=== PATIENT | male | born 1965 | race Caucasian/White ===

== ENCOUNTER 2018-01-18 04:25 | Inpatient (IN) | payer BC, SELFPAY ==
[2018-01-18] VITALS (24 sets, daily range): BP systolic 99–148; BP diastolic 54–87; PULSE 88–116; RESP 10–32; TEMP 36.6–37.7; O2SAT 94–100; BMI 24.7; BMI 24.5; BMI 24.6
--- NOTE | 2018-01-18 04:36 | EKG12_ITS ---
Test Reason : Blood Pressure : / mmHG Vent. Rate : 092 BPM Atrial Rate : 092 BPM P-R Int : 170 ms QRS Dur : 104 ms QT Int : 366 ms P-R-T Axes : 055 -30 066 degrees QTc Int : 452 ms Normal sinus rhythm Left axis deviation Abnormal ECG Confirmed by TELMA MAO, MAURICE ([id number]), science editor BLADE MONDRAGON ([id number] on 01/21/2018 2:44:40 PM Referred By: Confirmed By:MAURICE HOLLIS MD
--- NOTE | 2018-01-18 04:36 | CT_ITS ---
STUDY: CT ABDOMEN AND PELVIS WITHOUT CONTRAST REASON FOR EXAM: Male, 52 years old. Nausea and vomiting. Bloody stools. Patient had a colonoscopy prior day. RADIATION DOSAGE (If Supplied By Facility): CTDIvol = ( 9.06 ) mGy, DLP = ( 407.33 ) mGycm TECHNIQUE: Transaxial images were obtained from the dome of the diaphragm to the symphysis pubis without oral contrast, and without intravenous contrast. Sagittal and coronal images were reconstructed. Individualized dose optimization techniques were used for this CT. COMPARISON: Comparison is made with prior study dated April 17, 2010. FINDINGS: The visualized lung bases are unremarkable. The visualized portions of the heart are within normal limits. Normal liver. I suspect small gallstones along the dependent portion of the gallbladder. Normal spleen. Normal pancreas. Normal bilateral adrenal glands. Normal right kidney. Normal left kidney. There is a small hiatal hernia. Normal small intestine. There are multiple colonic diverticula consistent with diverticulosis. The appendix is visualized and appears normal. There is diffuse atherosclerotic calcification of the abdominal aorta, without a demonstrated aneurysm. Normal inferior vena cava. Normal retroperitoneum. Distended urinary bladder. Small bilateral benign appearing inguinal lymph nodes. Mild degree of central prostatic calcifications. Normal abdominal wall. 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 CT/Abdomen/Pelvis without Cont IMPRESSION: I suspect small gallstones in the dependent portion of gallbladder. Sigmoid diverticulosis. Distended urinary bladder. Electronically Signed: Malcolm Kapoor MD at 8:49 EST Tel [phone], Service support ,
--- NOTE | 2018-01-18 04:39 | ED.VISSUMM ---
- ER Visit Summary Date of Service: 01/18/18 Chief Complaint: [Vomiting] History of Present Illness: The patient is a 52 M [presents the emergency department with nausea vomiting and intermittent crampy abdominal pain. Been going on since yesterday afternoon. He did have a colonoscopy performed at [facility] by Dr. Panda. After the procedure he started vomiting he is vomited 6-7 times. He did have some bright red blood per rectum. He feels generally weak. No fevers or chills. He is a type I diabetic and thinks this may be ketoacidosis. He also drinks 3-4 beers daily and does smoke. He feels generally weak. He has not had any abdominal surgeries.] Physical Examination: [] Blood pressure 143/81 heart rate 101 respiratory rate 15 pulse ox 100% on room air WN WD NAD PERRL EOMI Dry mucous membranes NECK supple and nontender, no masses Your tachycardic rhythm no murmur rub or gallop, no peripheral edema, symmetric radial pulses CTAB no respiratory distress ABDOMEN is soft mild epigastric and suprapubic tenderness to palpation, normal bowel sounds, no distension, no rebound or guarding SKIN is warm and dry no rashes Alert and Oriented x3, CN II-XII in tact, no motor or sensory deficits, gait normal No lymphadenopathy Test Results: [] Emergency Department Course and Treatment: [EKG is sinus at 92 there is no acute ischemic changes he does have left axis deviation. Screening labs are consistent with DKA. Patient is very dehydrated and there was great difficulty obtaining IV. I did attempt IV sites in both EEGs without success. He was consented for central line see procedure note below. He was given fluids Reglan and insulin drip. Because of his recent procedure CT of the abdomen was obtained to rule out free air. I did speak with Dr. Panda as well as Dr. Stanton.] PROCEDURE NOTE: Risk and benefit of central line were discussed with both the patient and his . They did consent. Skin was prepped and draped with sterile fashion. Ultrasound was used to locate the right common femoral vein. Patient was anesthetized with lidocaine locally femoral vein was cannulated after 2 punctures. There were no complications during the procedure. He had good flash and all 3 ports and the easily flushed. Line was sutured in. Sterile dressing was placed Treatment Plan: [] Disposition: [Admit] Impression: 1. DKA 2. Dehydration severe [] This note was generated with [employer] dictation software. It may contain incorrect words, spelling, and punctuation that were not noted in review of the chart prior to signing ED Disposition - Plan for ED Patient: Chief Complaint: Nausea/Vomiting Referrals: Rosario Lau MD [STAFF PHYSICIAN] -
[2018-01-18] MEDS: Ondansetron ODT 4 MG Tablet PO (05:41)
[2018-01-18 06:06] LABS: Absolute Lymphocyte Count 1.12 X10^3/ul (0.83-4.51); Basophil# 0.03 X10^3/uL; Basophil% 0.2 % (0-1); Eosinophil# 0.17 X10^3/uL; Eosinophils% 0.9 % (0-5); Hematocrit 46.4 % (40-54); Hemoglobin 16.3 g/dl (13.0-16.5); Lymphocyte # 1.12 X10^3/ul (4.0); Lymphocyte % 5.8 % (19-41); Mean Corp Hgb Conc 35.1 g/gl (32-36); Mean Corpuscular Hgb 32.3 pg (27.0-32.0); Mean Corpuscular Volume 92.1 fL (80-94); Monocyte# 0.85 X10^3/uL; Monocyte% 4.4 % (0-10); Neutrophil # 16.98 X10^3/uL (2.7-7.7); Neutrophil % 88.4 % (47-70); Platelet Count 702 K/mm3 (150-450); RBC Distribution Width CV 17.7 % (11.6-14.6); RBC Distribution Width SD 51.7 fl (35.1-43.9); Red Blood Count 5.04 M/mm3 (4.6-6.2); White Blood Count 19.2 K/mm3 (4.4-11.0)
[2018-01-18 06:07] LABS: Differential Indicated SCAN CRITERIA MET; POSITIVE COUNT YES; POSITIVE DIFFERENTIAL NO; POSITIVE MORPHOLOGY YES
[2018-01-18 06:20] LABS: Differential Comment SCANNED; Platelet Estimate MOD INC (ADEQ)
[2018-01-18 06:33] LABS: ALB/GLOB Ratio 1.1 RATIO (0.9-2.4); AST(SGOT) 15 U/L (15-37); Alanine Aminotransfer ALT/SGPT 15 U/L (16-61); Albumin, Serum 3.8 g/dL (3.2-5.0); Alkaline Phosphatase 92 U/L (45-117); Anion Gap 21 (5-15); BUN 20 mg/dL (7-18); BUN/Creat Ratio 18.5 RATIO (10-20); Calcium,Total 9.1 mg/dL (8.5-10.1); Chloride 105 mmol/L (98-107); Creatinine, Serum 1.08 mg/dL (0.70-1.30); EST Glomerular Filtration Rate 76 mL/min (>60); Est Glom Filt Rate - Afr Amer 92 mL/min (>60); Estimated Creatinine Clearance 85.22 ml/min; Globulin 3.6 g/dL (2.2-4.2); Glucose 358 mg/dL (74-106); Lipase 76 U/L (73-393); Potassium 4.9 mmol/L (3.5-5.1); Protein, Total 7.4 g/dL (6.4-8.2); Sodium Level 138 mmol/L (136-145)
[2018-01-18 07:16] LABS: Bedside Glucose 316 mg/dL (70-110)
--- NOTE | 2018-01-18 07:18 | NURSING ---
PAGED DR SHARP, HE CALLED BACK PAGED HOSPITALIST
[2018-01-18] MEDS: 0.9% Normal Saline 1,000 ML 1000 ML IV (07:21)
--- NOTE | 2018-01-18 07:21 | NURSING ---
DR BOBBI VELARDE
[2018-01-18] MEDS: Ondansetron 4 MG/2 ML Vial IV ×2 (07:22→17:29)
--- NOTE | 2018-01-18 07:24 | NURSING ---
DR MARTINES IN ER
[2018-01-18 07:36] LABS: Bedside Glucose 456 mg/dL (70-110)
--- NOTE | 2018-01-18 07:37 | PCM.HP.STD ---
Problem List (1) DKA (diabetic ketoacidosis) Status: Acute (2) Diabetes mellitus type 1 Status: Chronic History of Present Illness Date of Admission: 01/18/18 Chief Complaint: Nause vomiting. The patient is a 52 year old M who underwent a colonoscopy on the fifth. Since that time patient has been having intractable nausea and and abdominal pain. Patient was unable to keep anything down and presented to the emergency room. Patient was found to be in diabetic ketoacidosis with a blood glucose of 358, moderate acetones. Patient was profoundly dehydrated and they were unable to get any peripheral IVs, unable to gain access to the external jugular veins. Decided by the emergency room physician particular the patient's intractable nausea and vomiting to proceed with a femoral triple lumen catheter which was placed successfully. Patient has yet to receive fluids and insulin yet. Given the intractable nausea vomiting a recent colonoscopy a CAT scan of his abdomen pelvis has been ordered but not done yet. [] Past Medical History Past Medical History (Chronic Problems): Chronic Problems Diabetes mellitus type 1 (Chronic) Allergies No Known Allergies Allergy (Verified 01/18/18 04:26) Home Medications: Ambulatory Orders Medication Instructions Recorded Insulin Glargine,Hum.rec.anlog 35 - 38 unit SQ DAILY 01/18/18 [Lantus] Insulin Lispro [Humalog] 7 - 12 unit SQ TID 01/18/18 Meloxicam [Mobic] 15 mg PO DAILY 01/18/18 Sertraline HCl [Zoloft] 200 mg PO DAILY 01/18/18 Smoking Status: Heavy Smoker (>10/day) Tobacco Use: Cigarettes Alcohol: Occasional - 1-2 drinks per day Drugs: Marijuana - 1 joint per day - *Family History Maternal History Items: Cancer - Breast cancer, Dementia Paternal History Items: - - in 1973 Review of Systems Constitutional: Reports: Chills. Denies: Fever Eyes: Denies: Blurred vision, Double vision HEENT: Denies: Head Aches, Sinus Congestion, Sinus Drainage Cardiovascular: Denies: Chest Pain, Palpitations Respiratory: Denies: Cough, Shortness of breath at rest, Sputum production Gastrointestinal: Reports: Abdominal Pain, Constipation - Does have intermittent constipation regularly., Diarrhea, Nausea, Vomiting Genitourinary: Reports: - - Polyuria. Denies: Dysuria Musculoskeletal: Denies: Joint Pain, Joint Tenderness Skin: Denies: Rash, Wounds Neurological: Denies: Numbness, Tingling, Focal weakness Psychiatric: Denies: Anxiety, Depression Hematologic/ Lymphatic: Denies: Easy Bruising, Easy Bleeding VTE Information - Inpt Only VTE Present on Admission: No VTE Pharm Prophylaxis ordered?: Yes Patient Problems: Active and Suspected Problems DKA (diabetic ketoacidosis) (Acute) - Physical Exam General: Alert, Cooperative, No apparent distress HEENT: Atraumatic, Normocephalic Oral: No Gingival or Mucosal Lesions/ Ulcerations, Dry Mucosa Neck: No Nodes, Thyroid Normal Size and Texture Lungs: Clear to auscultation, Normal air movement, No rhonchi, No wheeze Cardiovascular: Regular Rhythm, Normal S1, Normal S2, Tachycardic Abdomen: Bowel Sounds Present, Soft, Non Tender, Non-Distended, No Hepato-splenomegaly Extremities: No edema, No Calf Tenderness Skin: No rashes, No breakdown Musculoskeletal: No Tenderness to Palpation of Joints or Extremities, No Muscle Wasting Neurological: Neuro grossly intact, Sensory exam intact to light touch and pain, Coordination normal Psych/Mental Status: Normal Affect, Appropriate Vital Signs Temp Pulse Resp BP Pulse Ox 36.9 C 98 30 H 139/87 H 98 01/18/18 04:27 01/18/18 07:24 01/18/18 07:24 01/18/18 06:48 01/18/18 07:24 Oxygen Delivery Method Room Air Weight: 80.6 kg Body Mass Index (BMI) 24.7 Finger Stick Blood Glucose 316 Laboratory Tests Past 24 Hrs 01/18/18 01/18/18 01/18/18 05:35 05:50 05:50 WBC 19.2 H RBC 5.04 Hgb 16.3 Hct 46.4 MCV 92.1 MCH 32.3 H MCHC 35.1 RDW 17.7 H RDW Differential 51.7 H Plt Count 702 H Immature Gran % (Auto) 0.300 Neut % (Auto) 88.4 H Lymph % (Auto) 5.8 L [place] % (Auto) 4.4 Eos % (Auto) 0.9 Baso % (Auto) 0.2 Absolute Neuts (auto) 17.0 H Absolute Lymphs (auto) 1.12 Total Counted Not Reportable Differential Comment SCANNED Platelet Estimate MOD INC Sodium 138 Potassium 4.9 Chloride 105 Carbon Dioxide 12.0 L Anion Gap 21 H BUN 20 H Creatinine 1.08 Estim Creat Clear Calc 85.22 Est GFR (MDRD) Af Amer 92 Est GFR (MDRD) Non-Af 76 BUN/Creatinine Ratio 18.5 Glucose 358 H Calcium 9.1 Total Bilirubin 0.80 AST 15 ALT 15 L Alkaline Phosphatase 92 Troponin I < 0.02 Total Protein 7.4 Albumin 3.8 Globulin 3.6 Albumin/Globulin Ratio 1.1 Lipase 76 Acetone Level MODERATE H POC Glucose 01/18/18 01/18/18 07:31 04:29 POC Glucose 456 H* 316 H Assessment/Plan Active and Suspected Problems DKA (diabetic ketoacidosis) (Acute) 1. Diabetic ketoacidosis Now that IV has been established patient was started on IV fluids as well as insulin drip. Patient's potassium is 4.9. Patient will be on a diabetic ketoacidosis protocol and will wait for his gap to be closed before turning off insulin drip. This may been precipitated with patient's recent colonoscopy and prep but question of the patient has some underlying gastroparesis as well has not been fully delineated. 2. Diabetes mellitus type 1 Patient's home insulin will obviously be held while he is on insulin drip. Will restart once his gap is closed. With the Levemir. 3. DVT prophylaxis with low molecular weight heparin 4. Intractable nausea and vomiting This is suspect this may be more in line with the DKA but a CAT scan of his abdomen pelvis has been ordered in the emergency room. I will be followed up and if anything surgical then Dr. Panda will be consulted. Code Visit Inpatient E&M: 78893 Init Hosp L3
--- NOTE | 2018-01-18 07:40 | NURSING ---
ICU 2 DKA BOBBI
[2018-01-18] MEDS: Metoclopramide 10 MG/2 ML Vial IV (07:41)
--- NOTE | 2018-01-18 07:45 | HP.PCM_ITS ---
Problem List (1) DKA (diabetic ketoacidosis) Status: Acute (2) Diabetes mellitus type 1 Status: Chronic History of Present Illness Date of Admission: 01/18/18 Chief Complaint: Nause vomiting. The patient is a 52 year old M who underwent a colonoscopy on the fifth. Since that time patient has been having intractable nausea and and abdominal pain. Patient was unable to keep anything down and presented to the emergency room. Patient was found to be in diabetic ketoacidosis with a blood glucose of 358, moderate acetones. Patient was profoundly dehydrated and they were unable to get any peripheral IVs, unable to gain access to the external jugular veins. Decided by the emergency room physician particular the patient's intractable nausea and vomiting to proceed with a femoral triple lumen catheter which was placed successfully. Patient has yet to receive fluids and insulin yet. Given the intractable nausea vomiting a recent colonoscopy a CAT scan of his abdomen pelvis has been ordered but not done yet. [] Past Medical History Past Medical History (Chronic Problems): Chronic Problems Diabetes mellitus type 1 (Chronic) Allergies No Known Allergies Allergy (Verified 01/18/18 04:26) Home Medications: Ambulatory Orders Medication Instructions Recorded Insulin Glargine,Hum.rec.anlog 35 - 38 unit SQ DAILY 01/18/18 [Lantus] Insulin Lispro [Humalog] 7 - 12 unit SQ TID 01/18/18 Meloxicam [Mobic] 15 mg PO DAILY 01/18/18 Sertraline HCl [Zoloft] 200 mg PO DAILY 01/18/18 Smoking Status: Heavy Smoker (>10/day) Tobacco Use: Cigarettes Alcohol: Occasional - 1-2 drinks per day Drugs: Marijuana - 1 joint per day - *Family History Maternal History Items: Cancer - Breast cancer, Dementia Paternal History Items: - - in 1973 Review of Systems Constitutional: Reports: Chills. Denies: Fever Eyes: Denies: Blurred vision, Double vision HEENT: Denies: Head Aches, Sinus Congestion, Sinus Drainage Cardiovascular: Denies: Chest Pain, Palpitations Respiratory: Denies: Cough, Shortness of breath at rest, Sputum production Gastrointestinal: Reports: Abdominal Pain, Constipation - Does have intermittent constipation regularly., Diarrhea, Nausea, Vomiting Genitourinary: Reports: - - Polyuria. Denies: Dysuria Musculoskeletal: Denies: Joint Pain, Joint Tenderness Skin: Denies: Rash, Wounds Neurological: Denies: Numbness, Tingling, Focal weakness Psychiatric: Denies: Anxiety, Depression Hematologic/ Lymphatic: Denies: Easy Bruising, Easy Bleeding VTE Information - Inpt Only VTE Present on Admission: No VTE Pharm Prophylaxis ordered?: Yes Patient Problems: Active and Suspected Problems DKA (diabetic ketoacidosis) (Acute) - Physical Exam General: Alert, Cooperative, No apparent distress HEENT: Atraumatic, Normocephalic Oral: No Gingival or Mucosal Lesions/ Ulcerations, Dry Mucosa Neck: No Nodes, Thyroid Normal Size and Texture Lungs: Clear to auscultation, Normal air movement, No rhonchi, No wheeze Cardiovascular: Regular Rhythm, Normal S1, Normal S2, Tachycardic Abdomen: Bowel Sounds Present, Soft, Non Tender, Non-Distended, No Hepato- splenomegaly Extremities: No edema, No Calf Tenderness Skin: No rashes, No breakdown Musculoskeletal: No Tenderness to Palpation of Joints or Extremities, No Muscle Wasting Neurological: Neuro grossly intact, Sensory exam intact to light touch and pain , Coordination normal Psych/Mental Status: Normal Affect, Appropriate Vital Signs Temp Pulse Resp BP Pulse Ox 36.9 C 98 30 H 139/87 H 98 01/18/18 04:27 01/18/18 07:24 01/18/18 07:24 01/18/18 06:48 01/18/18 07:24 Oxygen Delivery Method Room Air Weight: 80.6 kg Body Mass Index (BMI) 24.7 Finger Stick Blood Glucose 316 Laboratory Tests Past 24 Hrs 01/18/18 01/18/18 01/18/18 05:35 05:50 05:50 WBC 19.2 H RBC 5.04 Hgb 16.3 Hct 46.4 MCV 92.1 MCH 32.3 H MCHC 35.1 RDW 17.7 H RDW Differential 51.7 H Plt Count 702 H Immature Gran % (Auto) 0.300 Neut % (Auto) 88.4 H Lymph % (Auto) 5.8 L [place] % (Auto) 4.4 Eos % (Auto) 0.9 Baso % (Auto) 0.2 Absolute Neuts (auto) 17.0 H Absolute Lymphs (auto) 1.12 Total Counted Not Reportable Differential Comment SCANNED Platelet Estimate MOD INC Sodium 138 Potassium 4.9 Chloride 105 Carbon Dioxide 12.0 L Anion Gap 21 H BUN 20 H Creatinine 1.08 Estim Creat Clear Calc 85.22 Est GFR (MDRD) Af Amer 92 Est GFR (MDRD) Non-Af 76 BUN/Creatinine Ratio 18.5 Glucose 358 H Calcium 9.1 Total Bilirubin 0.80 AST 15 ALT 15 L Alkaline Phosphatase 92 Troponin I < 0.02 Total Protein 7.4 Albumin 3.8 Globulin 3.6 Albumin/Globulin Ratio 1.1 Lipase 76 Acetone Level MODERATE H POC Glucose 01/18/18 01/18/18 07:31 04:29 POC Glucose 456 H* 316 H Assessment/Plan Active and Suspected Problems DKA (diabetic ketoacidosis) (Acute) 1. Diabetic ketoacidosis * Now that IV has been established patient was started on IV fluids as well as insulin drip. Patient's potassium is 4.9. Patient will be on a diabetic ketoacidosis protocol and will wait for his gap to be closed before turning off insulin drip. This may been precipitated with patient's recent colonoscopy and prep but question of the patient has some underlying gastroparesis as well has not been fully delineated. 2. Diabetes mellitus type 1 * Patient's home insulin will obviously be held while he is on insulin drip. Will restart once his gap is closed. With the Levemir. 3. DVT prophylaxis with low molecular weight heparin 4. Intractable nausea and vomiting * This is suspect this may be more in line with the DKA but a CAT scan of his abdomen pelvis has been ordered in the emergency room. I will be followed up and if anything surgical then Dr. Panda will be consulted. Code Visit Inpatient E&M: 39147 Init Hosp L3
[2018-01-18 08:45] LABS: Bedside Glucose 388 mg/dL (70-110)
[2018-01-18 09:01] LABS: Bedside Glucose 394 mg/dL (70-110)
[2018-01-18 09:20] LABS: Anion Gap 22 (5-15); BUN 26 mg/dL (7-18); BUN/Creat Ratio 18.3 RATIO (10-20); Calcium,Total 8.4 mg/dL (8.5-10.1); Chloride 108 mmol/L (98-107); Creatinine, Serum 1.42 mg/dL (0.70-1.30); EST Glomerular Filtration Rate 56 mL/min (>60); Est Glom Filt Rate - Afr Amer 67 mL/min (>60); Estimated Creatinine Clearance 64.81 ml/min; Glucose 366 mg/dL (74-106); Potassium 4.3 mmol/L (3.5-5.1); Sodium Level 139 mmol/L (136-145)
[2018-01-18 09:22] LABS: Hemoglobin A1c 7.5 % (4.2-6.3)
[2018-01-18] MEDS: 0.9% Normal Saline 1,000 ML 999 ML IV (09:25)
[2018-01-18 10:22] LABS: M R Staph aureus DNA By PCR Negative (Negative); Probe Check PASS; Specimen Processing Control PASS
[2018-01-18] MEDS: 0.9% Normal Saline 1,000 ML 500 ML IV (10:27)
[2018-01-18] MEDS: 0.9% NaCl Peripheral Flush Adult/Peds IV ×3 (10:35→17:31)
[2018-01-18] MEDS: Sertraline 100 MG Tablet 200 MG PO (10:37)
[2018-01-18] MEDS: Enoxaparin 40 MG/0.4 ML Syringe SC (10:37)
[2018-01-18 11:36] LABS: Bedside Glucose 313 mg/dL (70-110)
[2018-01-18 11:36] LABS: Bedside Glucose 269 mg/dL (70-110)
--- NOTE | 2018-01-18 11:44 | CASEMGMT ---
DC Plan: home on discharge. No dc needs identified @ this time. La BSN RN ACM
[2018-01-18 11:51] LABS: Bedside Glucose 195 mg/dL (70-110)
[2018-01-18] MEDS: Dext 5%-0.45% NS 1,000 ML 150 ML IV (12:10)
[2018-01-18 13:14] LABS: Anion Gap 14 (5-15); BUN 23 mg/dL (7-18); BUN/Creat Ratio 20.9 RATIO (10-20); Calcium,Total 7.8 mg/dL (8.5-10.1); Chloride 114 mmol/L (98-107); EST Glomerular Filtration Rate 75 mL/min (>60); Est Glom Filt Rate - Afr Amer 90 mL/min (>60); Estimated Creatinine Clearance 83.67 ml/min; Glucose 190 mg/dL (74-106); Potassium 4.7 mmol/L (3.5-5.1); Sodium Level 142 mmol/L (136-145)
[2018-01-18 13:51] LABS: Bedside Glucose 196 mg/dL (70-110)
[2018-01-18 13:51] LABS: Bedside Glucose 147 mg/dL (70-110)
[2018-01-18 14:56] LABS: Bedside Glucose 202 mg/dL (70-110)
[2018-01-18 16:02] LABS: Bedside Glucose 190 mg/dL (70-110)
[2018-01-18 17:06] LABS: Bedside Glucose 167 mg/dL (70-110)
[2018-01-18 17:42] LABS: Anion Gap 8 (5-15); BUN 20 mg/dL (7-18); BUN/Creat Ratio 19.2 RATIO (10-20); Calcium,Total 7.6 mg/dL (8.5-10.1); Chloride 113 mmol/L (98-107); Creatinine, Serum 1.04 mg/dL (0.70-1.30); EST Glomerular Filtration Rate 80 mL/min (>60); Est Glom Filt Rate - Afr Amer 96 mL/min (>60); Estimated Creatinine Clearance 88.49 ml/min; Glucose 315 mg/dL (74-106); Sodium Level 140 mmol/L (136-145)
[2018-01-18 17:51] LABS: Bedside Glucose 166 mg/dL (70-110)
--- NOTE | 2018-01-18 18:07 | CON.PCM_ITS ---
Reason for Consult Date of Consultation: 01/18/18 History of Present Illness: The patient is a 52 year old M who presents to the ER with intractable vomiting and abdominal pain overnight. The patient was seen yesterday by me for upper and lower endoscopy due to reflux and epigastric symptoms and a history of rectal bleeding. The patient was found to have gastritis, a small hiatal hernia , distal esophagitis on the upper endoscopy. With lower endoscopy, the patient sounded to have significant diverticulosis in the sigmoid colon area and polyps in the mid sigmoid colon, including one very large, semi-sessile polyp that was removed in piecemeal fashion. This took over 1 hour to remove. The colon remained distensible throughout the procedure and the patient had no signs of colon injury. Postprocedure. His blood glucose was 132, in the sienna-endoscopy phase. The patient then had onset of abdominal pain and vomiting. He presented to the emergency department with the above complaints. He was noted to be severely dehydrated with a markedly elevated blood glucose and ketones. By the time he arrived in the emergency department, his abdominal pain had nearly resolved. The tentative diagnosis was diabetic ketoacidosis, but there was concern of colon injury, given the recent endoscopy. his notes that he has had previous episodes of diabetic ketoacidosis and this is how his symptoms will occasionally present. CT scan of the abdomen pelvis was obtained. This demonstrated no free air, dense diverticulosis and no pericolonic inflammation or fluid Past Medical History Past Medical History (Chronic Problems): Chronic Problems Diabetes mellitus type 1 (Chronic) Allergies No Known Allergies Allergy (Verified 01/18/18 04:26) Home Medications: Ambulatory Orders Medication Instructions Recorded Insulin Glargine,Hum.rec.anlog 35 - 38 unit SQ DAILY 01/18/18 [Lantus] Insulin Lispro [Humalog] 7 - 12 unit SQ TID 01/18/18 Meloxicam [Mobic] 15 mg PO DAILY 01/18/18 Sertraline HCl [Zoloft] 200 mg PO DAILY 01/18/18 Smoking Status: Heavy Smoker (>10/day) Tobacco Use: Cigarettes Alcohol: Occasional - 1-2 drinks per day Drugs: Marijuana - 1 joint per day - *Family History Maternal History Items: Cancer - Breast cancer, Dementia Paternal History Items: - - in 1973 Review of Systems Constitutional: Reports: Malaise, Weakness. Denies: Chills, Fever, Weight Change HEENT: Denies: Head Aches, Sinus Congestion, Sinus Drainage Cardiovascular: Denies: Chest Pain, Palpitations Respiratory: Denies: Cough, Shortness of breath at rest, Sputum production Gastrointestinal: Reports: Abdominal Pain, Hematochezia, Nausea, Vomiting Genitourinary: Denies: Dysuria Musculoskeletal: Denies: Joint Pain, Joint Tenderness Skin: Denies: Rash, Wounds Neurological: Denies: Numbness, Tingling, Focal weakness Psychiatric: Denies: Anxiety, Depression, Homicidal Ideations, Suicidal Ideations Hematologic/ Lymphatic: Denies: Easy Bruising, Easy Bleeding Patient Problems: Active and Suspected Problems DKA (diabetic ketoacidosis) (Acute) - Physical Exam General: Alert, Oriented x3 Lungs: Clear to auscultation, Normal air movement Cardiovascular: Tachycardic Abdomen: Bowel Sounds Present, Soft, Non Tender Vital Signs Temp Pulse Resp BP Pulse Ox 99.3 F H 91 18 115/70 95 01/18/18 16:00 01/18/18 18:00 01/18/18 18:00 01/18/18 18:00 01/18/18 18:00 Oxygen Delivery Method Room Air Weight: 79.9 kg Body Mass Index (BMI) 24.5 Intake and Output for Last 24 Hours 01/16/18 01/17/18 01/18/18 23:59 23:59 23:59 Intake Total 3180 / 3180 Output Total 1300 / 1300 Balance 1880 / 1880 Laboratory Tests Past 24 Hrs 01/18/18 01/18/18 01/18/18 08:05 08:50 08:50 Sodium 139 Potassium 4.3 Chloride 108 H Carbon Dioxide 9.0 L* Anion Gap 22 H BUN 26 H Creatinine 1.42 H Estim Creat Clear Calc 64.81 Est GFR (MDRD) Af Amer 67 Est GFR (MDRD) Non-Af 56 L BUN/Creatinine Ratio 18.3 Glucose 366 H Hemoglobin A1c 7.5 H Calcium 8.4 L MRSA (PCR) Negative 01/18/18 01/18/18 12:50 15:50 Sodium 142 140 Potassium 4.7 4.0 Chloride 114 H 113 H Carbon Dioxide 14.0 L 19.0 L Anion Gap 14 8 BUN 23 H 20 H Creatinine 1.10 1.04 Estim Creat Clear Calc 83.67 88.49 Est GFR (MDRD) Af Amer 90 96 Est GFR (MDRD) Non-Af 75 80 BUN/Creatinine Ratio 20.9 H 19.2 Glucose 190 H 315 H Hemoglobin A1c Calcium 7.8 L 7.6 L MRSA (PCR) POC Glucose 01/18/18 01/18/18 01/18/18 17:44 16:53 15:55 POC Glucose 166 H 167 H 190 H 01/18/18 01/18/18 01/18/18 14:50 13:46 12:41 POC Glucose 202 H 196 H 147 H 01/18/18 01/18/18 01/18/18 11:43 10:43 09:42 POC Glucose 195 H 269 H 313 H 01/18/18 01/18/18 08:39 08:15 POC Glucose 388 H 394 H Assessment/Plan Active and Suspected Problems DKA (diabetic ketoacidosis) (Acute) diabetic ketoacidosis, they were challenges obtaining IV access, but a femoral line was placed in the patient's currently being hydrated in place. An incision drip. recent colonoscopy with complicated polypectomy- patient was followed clinically. Currently, his CT scan was reviewed by myself and in discussion with the radiologist. This felt to be no signs of colonic injury, considering the patient's above findings. I discussed with patient and family. Given the complexity of the polypectomy that he is at risk for postoperative bleeding. We will follow his clinical exam and be on the look out for significant hematochezia
[2018-01-18] MEDS: 0.9% Normal Saline 1,000 ML 125 ML IV (18:44)
--- NOTE | 2018-01-18 19:06 | NURSING ---
Reviewed Charting by Emiliana Melendez RN and agree with findings
[2018-01-18] MEDS: BENZOCAINE/MENTHOL 1 LOZENGE MUCOUS MEM (20:33)
[2018-01-19] VITALS (16 sets, daily range): BP systolic 126–151; BP diastolic 63–88; PULSE 74–90; RESP 13–96; TEMP 36.7–37.2; O2SAT 10–98
[2018-01-19 00:16] LABS: Mucous, Urine 0 SEEN /hpf (<or=2+); Squamous Epithelial Cells - UA 0 SEEN /hpf (0-5); White Blood Cells 0 SEEN /hpf (0-5)
[2018-01-19 00:23] LABS: Color, Urine Yellow (Yellow); Glucose, Dipstick 100 mg/dl (Normal); Leukocyte Esterase-Dipstick Negative /ul (Negative); Nitrite-Dipstick Negative (Negative); Occult Blood-Urine 10 /ul (Negative); Protein-Dipstick Negative (Negative); Urine Bilirubin Dipstick Negative (Negative); Urine Clarity Clear (Clear); Urine Urobilinogen Normal (Normal)
[2018-01-19 00:30] LABS: Ketone-Dipstick 150 mg/dl (Negative)
[2018-01-19 00:31] LABS: Bacteria RARE /hpf (None Seen); Hyaline Cast 0-5 SEEN /lpf (0-5); Red Blood Cells-Urine 0-5 SEEN /hpf (0-5)
[2018-01-19 00:42] LABS: Bedside Glucose 184 mg/dL (70-110)
[2018-01-19] MEDS: 0.9% Normal Saline 1,000 ML 125 ML IV (03:18)
[2018-01-19 04:03] LABS: Hematocrit 38.9 % (40-54); Hemoglobin 12.4 g/dl (13.0-16.5); Mean Corp Hgb Conc 31.9 g/gl (32-36); Mean Corpuscular Hgb 30.2 pg (27.0-32.0); Mean Corpuscular Volume 94.6 fL (80-94); Mean Platelet Vol. 9.3 fl (6.2-12.0); Platelet Count 275 K/mm3 (150-450); RBC Distribution Width CV 14.2 % (11.6-14.6); RBC Distribution Width SD 49.2 fl (35.1-43.9); Red Blood Count 4.11 M/mm3 (4.6-6.2); White Blood Count 13.2 K/mm3 (4.4-11.0)
[2018-01-19 04:04] LABS: Scan Indicated on CBC? Y/N NO
[2018-01-19 04:49] LABS: Anion Gap 8 (5-15); BUN 16 mg/dL (7-18); Calcium,Total 7.8 mg/dL (8.5-10.1); Chloride 113 mmol/L (98-107); EST Glomerular Filtration Rate 108 mL/min (>60); Est Glom Filt Rate - Afr Amer 130 mL/min (>60); Estimated Creatinine Clearance 115.04 ml/min; Glucose 145 mg/dL (74-106); Sodium Level 143 mmol/L (136-145)
--- NOTE | 2018-01-19 06:33 | PCM.PN.SRG ---
Patient Problems: Active and Suspected Problems DKA (diabetic ketoacidosis) (Acute) Subjective: mild abdominal pain, no BM - Physical Exam General: Alert, Oriented x3 Lungs: Wheezes Cardiovascular: Regular rate, Regular Rhythm Abdomen: Bowel Sounds Present, Soft, Non Tender Vital Signs Temp Pulse Resp BP Pulse Ox 98.1 F 74 16 133/88 H 96 01/19/18 04:00 01/19/18 06:00 01/19/18 06:00 01/19/18 06:00 01/19/18 06:00 Oxygen Delivery Method Room Air Weight: 80 kg Body Mass Index (BMI) 24.5 Intake and Output for Last 24 Hours 01/17/18 01/18/18 01/19/18 23:59 23:59 23:59 Intake Total 3180 / 3180 1500 / 1500 Output Total 1300 / 1300 1425 / 1425 Balance 1880 / 1880 75 / 75 Laboratory Tests Past 24 Hrs 01/18/18 01/18/18 01/18/18 08:05 08:50 08:50 WBC RBC Hgb Hct MCV MCH MCHC RDW RDW Differential Plt Count MPV Sodium 139 Potassium 4.3 Chloride 108 H Carbon Dioxide 9.0 L* Anion Gap 22 H BUN 26 H Creatinine 1.42 H Estim Creat Clear Calc 64.81 Est GFR (MDRD) Af Amer 67 Est GFR (MDRD) Non-Af 56 L BUN/Creatinine Ratio 18.3 Glucose 366 H Hemoglobin A1c 7.5 H Calcium 8.4 L Urine Color Urine Clarity Urine pH Ur Specific [place] Urine Protein Urine Glucose (UA) Urine Ketones Urine Occult Blood Urine Nitrite Urine Bilirubin Urine Urobilinogen Ur Leukocyte Esterase Urine RBC Urine WBC Ur Squamous Epith Cells Urine Bacteria Hyaline Casts Urine Mucus MRSA (PCR) Negative 01/18/18 01/18/18 01/19/18 12:50 15:50 00:00 WBC RBC Hgb Hct MCV MCH MCHC RDW RDW Differential Plt Count MPV Sodium 142 140 Potassium 4.7 4.0 Chloride 114 H 113 H Carbon Dioxide 14.0 L 19.0 L Anion Gap 14 8 BUN 23 H 20 H Creatinine 1.10 1.04 Estim Creat Clear Calc 83.67 88.49 Est GFR (MDRD) Af Amer 90 96 Est GFR (MDRD) Non-Af 75 80 BUN/Creatinine Ratio 20.9 H 19.2 Glucose 190 H 315 H Hemoglobin A1c Calcium 7.8 L 7.6 L Urine Color Yellow Urine Clarity Clear Urine pH 6.0 Ur Specific [place] 1.010 Urine Protein Negative Urine Glucose (UA) 100 H Urine Ketones 150 H Urine Occult Blood 10 H Urine Nitrite Negative Urine Bilirubin Negative Urine Urobilinogen Normal Ur Leukocyte Esterase Negative Urine RBC 0-5 SEEN Urine WBC 0 SEEN Ur Squamous Epith Cells 0 SEEN Urine Bacteria RARE Hyaline Casts 0-5 SEEN Urine Mucus 0 SEEN MRSA (PCR) 01/19/18 01/19/18 03:50 03:50 WBC 13.2 H RBC 4.11 L Hgb 12.4 L Hct 38.9 L MCV 94.6 H MCH 30.2 MCHC 31.9 L RDW 14.2 RDW Differential 49.2 H Plt Count 275 MPV 9.3 Sodium 143 Potassium 4.0 Chloride 113 H Carbon Dioxide 22.0 Anion Gap 8 BUN 16 Creatinine 0.80 Estim Creat Clear Calc 115.04 Est GFR (MDRD) Af Amer 130 Est GFR (MDRD) Non-Af 108 BUN/Creatinine Ratio 20.0 Glucose 145 H Hemoglobin A1c Calcium 7.8 L Urine Color Urine Clarity Urine pH Ur Specific [place] Urine Protein Urine Glucose (UA) Urine Ketones Urine Occult Blood Urine Nitrite Urine Bilirubin Urine Urobilinogen Ur Leukocyte Esterase Urine RBC Urine WBC Ur Squamous Epith Cells Urine Bacteria Hyaline Casts Urine Mucus MRSA (PCR) POC Glucose 01/19/18 01/18/18 01/18/18 00:33 17:44 16:53 POC Glucose 184 H 166 H 167 H 01/18/18 01/18/18 01/18/18 15:55 14:50 13:46 POC Glucose 190 H 202 H 196 H 01/18/18 01/18/18 01/18/18 12:41 11:43 10:43 POC Glucose 147 H 195 H 269 H 01/18/18 01/18/18 01/18/18 09:42 08:39 08:15 POC Glucose 313 H 388 H 394 H Assessment/Plan Active and Suspected Problems DKA (diabetic ketoacidosis) (Acute) diabetic ketoacidosis, they were challenges obtaining IV access, but a femoral line was placed in the patient's currently being hydrated in place. An insulin drip - accucheck in 180s. recent colonoscopy with complicated polypectomy- patient was followed clinically. Currently, his CT scan was reviewed by myself and in discussion with the radiologist. This felt to be no signs of colonic injury, considering the patient's above findings. I discussed with patient and family. Given the complexity of the polypectomy that he is at risk for postoperative bleeding. patient with no bleeding overnight. Clinically benign abdomen. We will follow his clinical exam and be on the look out for significant hematochezia. Patient will follow up in my office next week for pathology results
[2018-01-19 07:01] LABS: Bedside Glucose 114 mg/dL (70-110)
--- NOTE | 2018-01-19 08:20 | PCM.PN.HOSP ---
Patient Problems: Active and Suspected Problems DKA (diabetic ketoacidosis) (Acute) Subjective: Tolerated dinner last night. No further nausea and vomiting. Vitals/I&O's: Vital Signs Temp Pulse Resp BP Pulse Ox 36.7 C 74 16 133/88 H 96 01/19/18 04:00 01/19/18 06:00 01/19/18 06:00 01/19/18 06:00 01/19/18 06:00 Oxygen Delivery Method Room Air Weight: 80 kg Body Mass Index (BMI) 24.5 Intake and Output for Last 24 Hours 01/17/18 01/18/18 01/19/18 23:59 23:59 23:59 Intake Total 3180 / 3180 1500 / 1500 Output Total 1300 / 1300 1425 / 1425 Balance 1880 / 1880 75 / 75 General: Alert, Cooperative, Well developed, Well nourished HEENT: Atraumatic, Normocephalic Psych/Mental Status: Normal Affect, Appropriate Laboratory Results 01/18/18 08:05: MRSA (PCR) Negative 01/18/18 08:15: POC Glucose 394 H 01/18/18 08:39: POC Glucose 388 H 01/18/18 08:50: Hemoglobin A1c 7.5 H 01/18/18 08:50: Sodium 139, Potassium 4.3, Chloride 108 H, Carbon Dioxide 9.0 L*, Anion Gap 22 H, BUN 26 H, Creatinine 1.42 H, Estim Creat Clear Calc 64.81, Est GFR (MDRD) Af Amer 67, Est GFR (MDRD) Non-Af 56 L, BUN/Creatinine Ratio 18.3, Glucose 366 H, Calcium 8.4 L 01/18/18 09:42: POC Glucose 313 H 01/18/18 10:43: POC Glucose 269 H 01/18/18 11:43: POC Glucose 195 H 01/18/18 12:41: POC Glucose 147 H 01/18/18 12:50: Sodium 142, Potassium 4.7, Chloride 114 H, Carbon Dioxide 14.0 L, Anion Gap 14, BUN 23 H, Creatinine 1.10, Estim Creat Clear Calc 83.67, Est GFR (MDRD) Af Amer 90, Est GFR (MDRD) Non-Af 75, BUN/Creatinine Ratio 20.9 H, Glucose 190 H, Calcium 7.8 L 01/18/18 13:46: POC Glucose 196 H 01/18/18 14:50: POC Glucose 202 H 01/18/18 15:50: Sodium 140, Potassium 4.0, Chloride 113 H, Carbon Dioxide 19.0 L, Anion Gap 8, BUN 20 H, Creatinine 1.04, Estim Creat Clear Calc 88.49, Est GFR (MDRD) Af Amer 96, Est GFR (MDRD) Non-Af 80, BUN/Creatinine Ratio 19.2, Glucose 315 H, Calcium 7.6 L 01/18/18 15:55: POC Glucose 190 H 01/18/18 16:53: POC Glucose 167 H 01/18/18 17:44: POC Glucose 166 H 01/19/18 00:00: Urine Color Yellow, Urine Clarity Clear, Urine pH 6.0, Ur Specific [place] 1.010, Urine Protein Negative, Urine Glucose (UA) 100 H, Urine Ketones 150 H, Urine Occult Blood 10 H, Urine Nitrite Negative, Urine Bilirubin Negative, Urine Urobilinogen Normal, Ur Leukocyte Esterase Negative, Urine RBC 0-5 SEEN, Urine WBC 0 SEEN, Ur Squamous Epith Cells 0 SEEN, Urine Bacteria RARE, Hyaline Casts 0-5 SEEN, Urine Mucus 0 SEEN 01/19/18 00:33: POC Glucose 184 H 01/19/18 03:50: WBC 13.2 H, RBC 4.11 L, Hgb 12.4 L, Hct 38.9 L, MCV 94.6 H, MCH 30.2, MCHC 31.9 L, RDW 14.2, RDW Differential 49.2 H, Plt Count 275, MPV 9.3 01/19/18 03:50: Sodium 143, Potassium 4.0, Chloride 113 H, Carbon Dioxide 22.0, Anion Gap 8, BUN 16, Creatinine 0.80, Estim Creat Clear Calc 115.04, Est GFR (MDRD) Af Amer 130, Est GFR (MDRD) Non-Af 108, BUN/Creatinine Ratio 20.0, Glucose 145 H, Calcium 7.8 L 01/19/18 06:58: POC Glucose 114 H Current Medications Acetaminophen (Tylenol) 650 mg PO Q6H PRN PRN PRN Reason: Mild Pain (1-3)/Temp > 100.7 F Dextrose (D50w Syringe) 0 gm IV X1 PRN; Protocol PRN Reason: Hypoglycemia Enoxaparin Sodium (Lovenox) 40 mg SC DAILY@1000 JAMES Last Admin: 01/18/18 10:37 Dose: 40 mg Sodium Chloride () 1,000 mls @ 125 mls/hr IV .Q8H [facility] Last Admin: 01/19/18 03:18 Dose: 125 mls/hr Insulin Aspart (Novolog Flexpen ([facility])) 8 units SC TIDAC [facility] Last Admin: 01/18/18 18:42 Dose: 8 u Insulin Detemir (Levemir (Bk)) 35 units SC QHS [facility] Magnesium Hydroxide (Milk Of Magnesia) 30 ml PO DAILY PRN PRN PRN Reason: Constipation Morphine Sulfate (Morphine) 2 - 4 mg IV Q4H PRN PRN PRN Reason: MOD-SEVERE PAIN (4-10/10) Last Admin: 01/18/18 17:31 Dose: 2 mg Morphine Sulfate (Morphine) 2 - 4 mg IV Q4H PRN PRN PRN Reason: MOD-SEVERE PAIN (4-10/10) Last Admin: 01/18/18 10:35 Dose: 4 mg Nicotine (Nicoderm Cq (Pbkc)) 21 mg TRANSDERM. DAILY [facility] Last Admin: 01/18/18 10:36 Dose: 21 mg Ondansetron HCl (Zofran) 4 mg IV Q8H PRN PRN PRN Reason: NAUSEA Last Admin: 01/18/18 17:29 Dose: 4 mg Phenol/Menthol (Chloraseptic (Bkc)) 3 spray MM Q2H PRN PRN PRN Reason: SORE THROAT Promethazine HCl (Phenergan (Ll)) 12.5 mg IV Q6H PRN PRN PRN Reason: NAUSEA/VOMITING Sertraline HCl (Zoloft) 200 mg PO DAILY [facility] Last Admin: 01/18/18 10:37 Dose: 200 mg Sodium Chloride () 5 - 30 ml IV UD PRN PRN Reason: SALINE FLUSH Last Admin: 01/18/18 17:31 Dose: 30 ml Sodium Chloride () 10 - 40 ml IV UD PRN PRN Reason: MULTILUMEN/HICMAN CATH FLUSH Throat Lozenges (Cepacol Sore Throat Lozenge) 1 lozenge MUCOUS MEM Q2H PRN PRN PRN Reason: SORE THROAT Last Admin: 01/18/18 20:33 Dose: 1 lozenge Assessment/Plan Active and Suspected Problems DKA (diabetic ketoacidosis) (Acute) 1. Diabetic ketoacidosis resolved back on home dosing of insulin and BGTs are doing much better. This may been precipitated with patient's recent colonoscopy and prep but question of the patient has some underlying gastroparesis as well has not been fully delineated. 2. Diabetes mellitus type 1 back on home dosing of insuline 3. DVT prophylaxis with low molecular weight heparin 4. Intractable nausea and vomiting resolved 5. Recent colonoscopy w complicated polypectomy done last week plan to follow up with Dr. Mejia for path results.
--- NOTE | 2018-01-19 08:24 | PN_ITS ---
Patient Problems: Active and Suspected Problems DKA (diabetic ketoacidosis) (Acute) Subjective: Tolerated dinner last night. No further nausea and vomiting. Vitals/I&O's: Vital Signs Temp Pulse Resp BP Pulse Ox 36.7 C 74 16 133/88 H 96 01/19/18 04:00 01/19/18 06:00 01/19/18 06:00 01/19/18 06:00 01/19/18 06:00 Oxygen Delivery Method Room Air Weight: 80 kg Body Mass Index (BMI) 24.5 Intake and Output for Last 24 Hours 01/17/18 01/18/18 01/19/18 23:59 23:59 23:59 Intake Total 3180 / 3180 1500 / 1500 Output Total 1300 / 1300 1425 / 1425 Balance 1880 / 1880 75 / 75 General: Alert, Cooperative, Well developed, Well nourished HEENT: Atraumatic, Normocephalic Psych/Mental Status: Normal Affect, Appropriate Laboratory Results 01/18/18 08:05: MRSA (PCR) Negative 01/18/18 08:15: POC Glucose 394 H 01/18/18 08:39: POC Glucose 388 H 01/18/18 08:50: Hemoglobin A1c 7.5 H 01/18/18 08:50: Sodium 139, Potassium 4.3, Chloride 108 H, Carbon Dioxide 9.0 L* , Anion Gap 22 H, BUN 26 H, Creatinine 1.42 H, Estim Creat Clear Calc 64.81, Est GFR (MDRD) Af Amer 67, Est GFR (MDRD) Non-Af 56 L, BUN/Creatinine Ratio 18.3 , Glucose 366 H, Calcium 8.4 L 01/18/18 09:42: POC Glucose 313 H 01/18/18 10:43: POC Glucose 269 H 01/18/18 11:43: POC Glucose 195 H 01/18/18 12:41: POC Glucose 147 H 01/18/18 12:50: Sodium 142, Potassium 4.7, Chloride 114 H, Carbon Dioxide 14.0 L , Anion Gap 14, BUN 23 H, Creatinine 1.10, Estim Creat Clear Calc 83.67, Est GFR (MDRD) Af Amer 90, Est GFR (MDRD) Non-Af 75, BUN/Creatinine Ratio 20.9 H, Glucose 190 H, Calcium 7.8 L 01/18/18 13:46: POC Glucose 196 H 01/18/18 14:50: POC Glucose 202 H 01/18/18 15:50: Sodium 140, Potassium 4.0, Chloride 113 H, Carbon Dioxide 19.0 L , Anion Gap 8, BUN 20 H, Creatinine 1.04, Estim Creat Clear Calc 88.49, Est GFR (MDRD) Af Amer 96, Est GFR (MDRD) Non-Af 80, BUN/Creatinine Ratio 19.2, Glucose 315 H, Calcium 7.6 L 01/18/18 15:55: POC Glucose 190 H 01/18/18 16:53: POC Glucose 167 H 01/18/18 17:44: POC Glucose 166 H 01/19/18 00:00: Urine Color Yellow, Urine Clarity Clear, Urine pH 6.0, Ur Specific [place] 1.010, Urine Protein Negative, Urine Glucose (UA) 100 H, Urine Ketones 150 H, Urine Occult Blood 10 H, Urine Nitrite Negative, Urine Bilirubin Negative, Urine Urobilinogen Normal, Ur Leukocyte Esterase Negative, Urine RBC 0 -5 SEEN, Urine WBC 0 SEEN, Ur Squamous Epith Cells 0 SEEN, Urine Bacteria RARE, Hyaline Casts 0-5 SEEN, Urine Mucus 0 SEEN 01/19/18 00:33: POC Glucose 184 H 01/19/18 03:50: WBC 13.2 H, RBC 4.11 L, Hgb 12.4 L, Hct 38.9 L, MCV 94.6 H, MCH 30.2, MCHC 31.9 L, RDW 14.2, RDW Differential 49.2 H, Plt Count 275, MPV 9.3 01/19/18 03:50: Sodium 143, Potassium 4.0, Chloride 113 H, Carbon Dioxide 22.0, Anion Gap 8, BUN 16, Creatinine 0.80, Estim Creat Clear Calc 115.04, Est GFR ( MDRD) Af Amer 130, Est GFR (MDRD) Non-Af 108, BUN/Creatinine Ratio 20.0, Glucose 145 H, Calcium 7.8 L 01/19/18 06:58: POC Glucose 114 H Current Medications Acetaminophen (Tylenol) 650 mg PO Q6H PRN PRN PRN Reason: Mild Pain (1-3)/Temp > 100.7 F Dextrose (D50w Syringe) 0 gm IV X1 PRN; Protocol PRN Reason: Hypoglycemia Enoxaparin Sodium (Lovenox) 40 mg SC DAILY@1000 JAMES Last Admin: 01/18/18 10:37 Dose: 40 mg Sodium Chloride () 1,000 mls @ 125 mls/hr IV .Q8H [facility] Last Admin: 01/19/18 03:18 Dose: 125 mls/hr Insulin Aspart (Novolog Flexpen ([facility])) 8 units SC TIDAC [facility] Last Admin: 01/18/18 18:42 Dose: 8 u Insulin Detemir (Levemir (Bk)) 35 units SC QHS [facility] Magnesium Hydroxide (Milk Of Magnesia) 30 ml PO DAILY PRN PRN PRN Reason: Constipation Morphine Sulfate (Morphine) 2 - 4 mg IV Q4H PRN PRN PRN Reason: MOD-SEVERE PAIN (4-10/10) Last Admin: 01/18/18 17:31 Dose: 2 mg Morphine Sulfate (Morphine) 2 - 4 mg IV Q4H PRN PRN PRN Reason: MOD-SEVERE PAIN (4-10/10) Last Admin: 01/18/18 10:35 Dose: 4 mg Nicotine (Nicoderm Cq (Pbkc)) 21 mg TRANSDERM. DAILY [facility] Last Admin: 01/18/18 10:36 Dose: 21 mg Ondansetron HCl (Zofran) 4 mg IV Q8H PRN PRN PRN Reason: NAUSEA Last Admin: 01/18/18 17:29 Dose: 4 mg Phenol/Menthol (Chloraseptic (Bkc)) 3 spray MM Q2H PRN PRN PRN Reason: SORE THROAT Promethazine HCl (Phenergan (Ll)) 12.5 mg IV Q6H PRN PRN PRN Reason: NAUSEA/VOMITING Sertraline HCl (Zoloft) 200 mg PO DAILY [facility] Last Admin: 01/18/18 10:37 Dose: 200 mg Sodium Chloride () 5 - 30 ml IV UD PRN PRN Reason: SALINE FLUSH Last Admin: 01/18/18 17:31 Dose: 30 ml Sodium Chloride () 10 - 40 ml IV UD PRN PRN Reason: MULTILUMEN/HICMAN CATH FLUSH Throat Lozenges (Cepacol Sore Throat Lozenge) 1 lozenge MUCOUS MEM Q2H PRN PRN PRN Reason: SORE THROAT Last Admin: 01/18/18 20:33 Dose: 1 lozenge Assessment/Plan Active and Suspected Problems DKA (diabetic ketoacidosis) (Acute) 1. Diabetic ketoacidosis * resolved * back on home dosing of insulin and BGTs are doing much better. * This may been precipitated with patient's recent colonoscopy and prep but question of the patient has some underlying gastroparesis as well has not been fully delineated. 2. Diabetes mellitus type 1 * back on home dosing of insuline 3. DVT prophylaxis with low molecular weight heparin 4. Intractable nausea and vomiting * resolved 5. Recent colonoscopy w complicated polypectomy * done last week * plan to follow up with Dr. Mejia for path results.
--- NOTE | 2018-01-19 08:29 | DCINST_ITS ---
- Discharge Diagnoses Current Active Problems: Current Active and Chronic Problems DKA (diabetic ketoacidosis) (Acute) Diabetes mellitus type 1 (Chronic) You will use the following diet at home:: Calorie/Carbohydrate Controlled ( specify 1200, 1400, etc) - 1800 kcal/day Your food should be the consistency of: Regular Your liquids should be the consistency of: Regular/Thin Discharge Activity: Return to Normal Activity Call your doctor if you observe: Fever of 101 or Higher, - - worsening abodminal pain. blood in stools Allergies/Adverse Reactions: Allergies No Known Allergies Allergy (Verified 01/18/18 04:26) Medications to take at Discharge Insulin Glargine,Hum.rec.anlog [Lantus] 35 - 38 unit SQ DAILY 01/18/18 Insulin Lispro [Humalog] 7 - 12 unit SQ TID 01/18/18 Meloxicam [Mobic] 15 mg PO DAILY 01/18/18 Sertraline HCl [Zoloft] 200 mg PO DAILY 01/18/18 Ondansetron HCl [Zofran] 8 mg PO TID PRN #15 tab 01/19/18 The following prescriptions were given: Ondansetron HCl [Zofran] 8 mg PO TID PRN #15 tab PRN Reason: nausea vomiting. Primary Care Physician: Rosario Lau MD [STAFF PHYSICIAN] - Within 2 Weeks Please Follow Up With: Dima Mejia MD When: 1 week Proposed Discharge Date: 01/19/18
--- NOTE | 2018-01-19 08:30 | PCM.DC.SUM ---
Discharge Date and Diagnosis - Problem List Patient Problems: Active and Suspected Problems DKA (diabetic ketoacidosis) (Acute) Date of Admission: 01/18/18 Date of Discharge: 01/19/18 - Primary Discharge Diagnosis Active and Suspected Problems DKA (diabetic ketoacidosis) (Acute) - Secondary Discharge Diagnosis Chronic Problems Diabetes mellitus type 1 (Chronic) Hospital Course and Treatment Imaging Results: Clinical Impression(s) from Imaging Studies Abdomen/Pelvis CT 01/18/18 04:36 IMPRESSION: I suspect small gallstones in the dependent portion of gallbladder. Sigmoid diverticulosis. Distended urinary bladder. Electronically Signed: Malcolm Kapoor MD at 8:49 EST Tel [phone], Service support , Operations: None Procedures: None Summary of Care Provided: The patient is a 52 year old M presents with diabetic ketoacidosis. The week before, patient had a colonoscopy and afterwards this was having tractable nausea and vomiting. Blood sugar on admission was 366 with positive anion gap 22 and acetones. Patient was given IV fluids and put on insulin drip. Patient did well and was found to transition over to his a standard dosing of insulin to which she has tolerated well. Patient had dinner last night which she tolerated well has yet to have breakfast but he does tolerate that then patient will be able to be discharged. Patient did have a right femoral triple lumen catheter placed. It was decided upon by the emergency room that that would be the safest option given the fact the patient was actively vomiting. External jugular access was attempted but unsuccessful on multiple attempts. There is concern that there may be some more intra-abdominal process going on given patient's recent colonoscopy and patient did have a complicated polypectomy. Patient a CAT scan that showed no acute process and patient had a benign abdomen. Patient will follow up with Dr. Panda for the biopsy results. [] Discharge Diet: 1800 Calorie Control Diet Discharge Activity: Return to Normal Activity Call your doctor if you observe: Fever of 101 or Higher, - - worsening abodminal pain. blood in stools Home Medications: Medications to take at Discharge Insulin Glargine,Hum.rec.anlog [Lantus] 35 - 38 unit SQ DAILY 01/18/18 Insulin Lispro [Humalog] 7 - 12 unit SQ TID 01/18/18 Meloxicam [Mobic] 15 mg PO DAILY 01/18/18 Sertraline HCl [Zoloft] 200 mg PO DAILY 01/18/18 Ondansetron HCl [Zofran] 8 mg PO TID PRN #15 tab 01/19/18 Following Prescrptions Were Given to Patient: Ondansetron HCl [Zofran] 8 mg PO TID PRN #15 tab PRN Reason: nausea vomiting. Primary Care Physician: Rosario Lau MD [STAFF PHYSICIAN] - Within 2 Weeks Please Follow Up With: Dima Mejia MD When: 1 week Disposition: Home Minutes spent on discharge:: 35 Patient Condition:: Good Meaningful Use Info Meaningful Use Diagnoses (Choose all that apply): None applicable Code Visit Inpatient E&M: 63886 Disch Hosp - If not discharged on 01/19/18, then bill as 232.
--- NOTE | 2018-01-19 08:34 | DS.PCM_ITS ---
Discharge Date and Diagnosis - Problem List Patient Problems: Active and Suspected Problems DKA (diabetic ketoacidosis) (Acute) Date of Admission: 01/18/18 Date of Discharge: 01/19/18 - Primary Discharge Diagnosis Active and Suspected Problems DKA (diabetic ketoacidosis) (Acute) - Secondary Discharge Diagnosis Chronic Problems Diabetes mellitus type 1 (Chronic) Hospital Course and Treatment Imaging Results: Clinical Impression(s) from Imaging Studies Abdomen/Pelvis CT 01/18/18 04:36 IMPRESSION: I suspect small gallstones in the dependent portion of gallbladder. Sigmoid diverticulosis. Distended urinary bladder. Electronically Signed: Malcolm Kapoor MD at 8:49 EST Tel [phone], Service support , Operations: None Procedures: None Summary of Care Provided: The patient is a 52 year old M presents with diabetic ketoacidosis. The week before, patient had a colonoscopy and afterwards this was having tractable nausea and vomiting. Blood sugar on admission was 366 with positive anion gap 22 and acetones. Patient was given IV fluids and put on insulin drip. Patient did well and was found to transition over to his a standard dosing of insulin to which she has tolerated well. Patient had dinner last night which she tolerated well has yet to have breakfast but he does tolerate that then patient will be able to be discharged. Patient did have a right femoral triple lumen catheter placed. It was decided upon by the emergency room that that would be the safest option given the fact the patient was actively vomiting. External jugular access was attempted but unsuccessful on multiple attempts. There is concern that there may be some more intra-abdominal process going on given patient's recent colonoscopy and patient did have a complicated polypectomy. Patient a CAT scan that showed no acute process and patient had a benign abdomen. Patient will follow up with Dr. Panda for the biopsy results. [] Discharge Diet: 1800 Calorie Control Diet Discharge Activity: Return to Normal Activity Call your doctor if you observe: Fever of 101 or Higher, - - worsening abodminal pain. blood in stools Home Medications: Medications to take at Discharge Insulin Glargine,Hum.rec.anlog [Lantus] 35 - 38 unit SQ DAILY 01/18/18 Insulin Lispro [Humalog] 7 - 12 unit SQ TID 01/18/18 Meloxicam [Mobic] 15 mg PO DAILY 01/18/18 Sertraline HCl [Zoloft] 200 mg PO DAILY 01/18/18 Ondansetron HCl [Zofran] 8 mg PO TID PRN #15 tab 01/19/18 Following Prescrptions Were Given to Patient: Ondansetron HCl [Zofran] 8 mg PO TID PRN #15 tab PRN Reason: nausea vomiting. Primary Care Physician: Rosario Lau MD [STAFF PHYSICIAN] - Within 2 Weeks Please Follow Up With: Dima Mejia MD When: 1 week Disposition: Home Minutes spent on discharge:: 35 Patient Condition:: Good Meaningful Use Info Meaningful Use Diagnoses (Choose all that apply): None applicable Code Visit Inpatient E&M: 99073 Disch Hosp - If not discharged on 01/19/18, then bill as 232.
[2018-01-19] MEDS: Acetaminophen 325 MG Tablet 650 MG PO (09:58)
[2018-01-19] MEDS: Sertraline 100 MG Tablet 200 MG PO (11:01)
[2018-01-19 13:26] LABS: Bedside Glucose 241 mg/dL (70-110)
== END 2018-01-19 14:40 | disposition home or self-care (01) | DRG 639 ==
LOC: ED 05:29 → ICU 07:44
PROVIDERS: Emergency Provider Emergency Medicine; Family Provider Family Medicine; PCP Family Medicine
DX: E10.10 Type 1 diabetes mellitus with ketoacidosis without coma (principal); E86.0 Dehydration; F17.210 Nicotine dependence, cigarettes, uncomplicated; Z79.4 Long term (current) use of insulin; Z86.010 Personal history of colon polyps
CPT/HCPCS: 36556; 74176; 80048; 80053; 81001; 82009; 82962; 83036; 83690; 84484; 85025; 85027; 87641; 93005; 97802; 99281; J7030; A4216; J2405; J7799

== ENCOUNTER 2018-04-22 10:13 | Day surgery (SDC) | payer BC, SELFPAY ==
--- NOTE | 2018-04-22 | COLBX_PTH ---
PATIENT: UGO BONILLA LOC: [facility] U#:[id number] AGE/SX: 53/M ROOM: RE04/22/[address]: Dr. Dima Mejia MD : 1965 BED: DIS: 04/22/2018 SPEC #: [id number] RECD: 04/22/18 14:10 STATUS: ELADIO GONZÁLEZ #: [id number] JONATHON: 04/22/18 00:[address]: Dima Mejia DEPT: SURGICAL PATHOLOGY RECD BY: Wilton White ENTERED: 04/22/18 14:10 SP TYPE: COLON BX OTHR DR: Dr. Heath Tatum MD Tissues: A - COLON BIOPSY B - Gastric mucous membrane Procedures: Special Stain Group II Surgery Specimen Level IV Alcian Blue/PAS (control) HEADER OPERATION: EGD; colonoscopy with polypectomy PRE-OP DIAGNOSIS: Distal esophagitis TISSUE SUBMITTED: A ? Polyp 45 cm, B ? Biopsy GE junction, rule out Hernandez?s MICROSCOPIC DIAGNOSIS A. Colon polyp at 45 cm, polypectomy: Tubular adenoma. Fragment of fecal material. B. 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 Chronic inflammation. Negative for dysplasia. CLIF:[email or web address] 04/25/18 COMMENT Alcian blue/PAS stain with matched control is used in the evaluation of the specimen. MICROSCOPIC DESCRIPTION Slides are reviewed. GROSS DESCRIPTION A - Received in fixative is one container labeled with the patient's name and designated polyp at 45 cm. The specimen consists of two irregular fragments of light heard soft tissue that in aggregate measure 0.5 x 0.5 x 0.1 cm. The specimen is totally submitted in one cassette. B - Received in fixative is one container labeled with the patient's name and designated biopsy GE junction. The specimen consists of two irregular fragments of light heard soft tissue that in aggregate measure 0.5 x 0.3 x 0.1 cm. The specimen is totally submitted in one cassette. / CLIF:[email or web address] 04/22/18 TC:1 CPT: 06431 x2, 75809
--- NOTE | 2018-04-22 10:13 | DT_ITS ---
This patient was seen during an EMR downtime April 18, 2018 - April 25, 2018. This patient may have a combination of paper and electronic documentation or all paper documentation. All documentation is viewable within the e-chart portion of [employer] for each patient visit.
[2018-04-29 20:37] LABS: Bedside Glucose 93 mg/dL (70-110)
--- NOTE | 2018-05-06 12:31 | OP.PCM_ITS ---
Report of Operation Date of Procedure: 04/22/18 Description of Procedure: OPERATIVE NOTATION FOR [facility] SURGICAL PROCEDURE. ? April 22, 2018 ? Kenney Loza ~~~~~~~1965 ~~~~[id number] ~~male ? PROCEDURE: EGD WITH BIOPSY - 25120-012 and COLONOSCOPY WITH BIOPSY - [id number] ? SURGEON: Domonique Mejia M.D. FACS~~~~~~~[employer] W[employer]ER: None ? DEPT: ~WQ ~~~~~~~~~~~~~~~~~~~~~~~~~PROVIDER: [id number]=DeijcfxDima Mejia MD~~~~~~~~~~~ POS: 4O7=[id number]~ ? DIAGNOSIS: (D12.5) Adenomatous polyp of sigmoid colon ~(primary encounter diagnosis) (K21.0) Gastroesophageal reflux disease with esophagitis ? ASA CLASS: ~2 - mild ? FINDINGS: Changes consistent with Hernandez's esophagitis, small hiatal hernia, polypoid areas in the distal sigmoid consistent with previous piecemeal polypectomy site and diverticulosis ? COMPLICATIONS: None ? PMHx - PAST MEDICAL HISTORY PAST MEDICAL HISTORY Diagnosis Date ? ALCOHOL ABUSE 04/22/2006 ? CERVICAL SPINAL STENOSIS 09/08/2006 ? DEPRESSIVE DISORDER NEC 04/22/2006 ? DIABETES MELLITUS TYPE I UNCONTR UNCOMPL 04/22/2006 ? 1996 ? Diabetes mellitus without mention of complication ? ? Diabetes mellitus ? Obstructive sleep apnea ? ? Other hammer toe (acquired) 07/29/2012 ? COMORBIDITIES - Chronic Alcohol Abuse and IDDM ? Post Op Occurrences - None ? Wound Classification - Clean Contaminated ? Operative note dictated in the [facility] dictation system. ? Dima Mejia MD ? ? The patient was brought to the endoscopy suite. ~Sign in was performed verifying patient, site, planned procedure, critical nursing information, ~the patient was monitored with cardiac, pulse oximetric, and blood pressure monitoring devices. ~Monitored anesthetic care was provided for sedation. ? Following IV sedation and after the oropharynx was sprayed with Cetacaine spray , a video gastroscope was inserted in the oropharynx and advanced down the esophagus without difficulty. ~The scope was advanced through the stomach, through the pylorus through the duodenum to the proximal jejunum.~~The jejunum and small bowel appeared unremarkable. ~A biopsy is obtained in the antrum for pathology. ~The scope was retroflexed, there was a small type I hiatal hernia. ~ As the scope was withdrawn. ~There was an irregular Z line with flame patterns and islands of normal appearing esophageal mucosa felt to be consistent with short segment Hernandez's esophagitis. ~Biopsies were obtained from this area. ~ As the scope was withdrawn. ~The esophagus was unremarkable. ? The patient was positioned for colonoscopy. ~A digital rectal exam was performed which revealed no palpable abnormalities~ The video colonoscope was inserted and advanced to the cecum as verified by the ileocecal valve, cecal base anatomic features and palpation.~~The scope was withdrawn. ~There was dense diverticulosis in the sigmoid region. ~As the scope was further withdrawn into the mid to distal sigmoid region there were 2 areas of polypoid-appearing tissue, each approximately 4-5 millimeters in size. ~ These were both removed via snare polypectomy and sent to pathology. ~My impression was I had performed a much better polypectomy at the previous time than I anticipated, with no obvious concerns for severe residual polyp size versus invasive cancer. ~G ? ? The patient tolerated the procedure well and was brought to recovery in stable condition. ? I had concern at the previous endoscopy, where a larger tubulovillous adenoma had been removed via piecemeal resection months earlier ~, there would be significant residual polyp disease. ~The could not be completely removed endoscopically and that this would be a precursor endoscopy to colon resection. ~I was pleasantly surprised that there was seen to be very little residual polyp tissue left in the area, although this was in the region of dense diverticulosis and at a curved area of the sigmoid, making complete evaluation somewhat challenging. ~Further, his bowel prep was moderately poor. ~Nonetheless , in discussing with the patient and his . ~We are no longer plantar perform sigmoid resection on Wednesday and we will plan for short-term follow-up in 6 months to year for repeat endoscopy of the area. ? ?
== END 2018-04-22 13:50 | disposition home or self-care (01) ==
LOC: EN 10:14
PROVIDERS: Family Provider Family Medicine; PCP Family Medicine; Visit Provider Surgery
PROC: 0DJD8ZZ Inspection of Lower Intestinal Tract, Via Natural or Artificial Opening Endoscopic (ICD-10-PCS; CPT 45378; principal; 2018-04-22 11:25)
DX: D12.5 Benign neoplasm of sigmoid colon (principal); K57.90 Diverticulosis of intestine, part unspecified, without perforation or abscess without bleeding; K21.0 Gastro-esophageal reflux disease with esophagitis; K44.9 Diaphragmatic hernia without obstruction or gangrene; E11.9 Type 2 diabetes mellitus without complications; F32.9 Major depressive disorder, single episode, unspecified; G47.33 Obstructive sleep apnea (adult) (pediatric); F17.200 Nicotine dependence, unspecified, uncomplicated; Z79.4 Long term (current) use of insulin; M48.02 Spinal stenosis, cervical region
CPT/HCPCS: 43239; 45380; 82962; 88305; 88313; J7120

== ENCOUNTER → 2018-04-22 12:35 | Outpatient (CLI) | payer BC, SELFPAY ==
--- NOTE | 2018-04-22 12:35 | DT_ITS ---
This patient was seen during an EMR downtime April 18, 2018 - April 25, 2018. This patient may have a combination of paper and electronic documentation or all paper documentation. All documentation is viewable within the e-chart portion of [employer] for each patient visit.
== END ==
PROVIDERS: Family Provider Family Medicine; PCP Family Medicine; Visit Provider Surgery
DX: K20.9 Esophagitis, unspecified (principal); K63.5 Polyp of colon

== ENCOUNTER → 2018-05-17 07:11 | Outpatient (CLI) | payer BC, SELFPAY | PROVIDERS: Family Provider Family Medicine; PCP Family Medicine; Visit Provider Surgery | DX: Z00.00 Encounter for general adult medical examination without abnormal findings (principal) ==